=== PATIENT | male | born 1930 | race Caucasian/White ===

== ENCOUNTER 2018-08-03 09:25 | Emergency (ER) | payer MEDICARE, OTHER ==
[~2018-08-03] VITALS: Ht 160 cm; Wt 61.0 kg
--- NOTE | 2018-08-03 10:57 | NUR ---
ULTRASOUND AT BEDSIDE.
--- NOTE | 2018-08-03 11:13 | NUR ---
VASCULAR AT BEDSIDE
--- NOTE | 2018-08-03 11:20 | NUR ---
VASCLAR A BEDSIDE UNABLE TO DRAW BLOOD AND DO EKG UNTIL VASCULAR IS FINISHED.
--- NOTE | 2018-08-03 11:37 | NUR ---
LAB AT BEDSIDE DRAWING BLOOD.
[2018-08-03] MEDS ORDERED: furosemide 20MG tablet PO ONE (11:45)
[2018-08-03 12:01] LABS: BASOPHILS % (AUTO) 0.5 % (0-1); EOSINOPHILS # (AUTO) 0.1 X10'3 (0-0.9); HEMATOCRIT 37.5 % (42.0-52.0); HEMOGLOBIN 12.7 g/dl (14.0-17.9); LYMPHOCYTES # (AUTO) 1.1 X10'3 (1.1-4.8); LYMPHOCYTES % (AUTO) 16.4 % (21-51); MEAN CORPUSCULAR HEMOGLOBIN 32.5 PG (27.0-31.0); MEAN CORPUSCULAR HGB CONC 33.8 % (33.0-36.5); MEAN CORPUSCULAR VOLUME 95.9 FL (78-98); MEAN PLATELET VOLUME 10.6 FL (7.4-10.4); MONOCYTES # (AUTO) 0.3 X10'3 (0-0.9); NEUTROPHILS % (AUTO) 78.1 % (42-75); PLATELET COUNT 186 X10'3 (140-440); RED BLOOD COUNT 3.91 X10'6 (4.70-6.10); RED CELL DISTRIBUTION WIDTH 13.5 % (11.5-14.5); WHITE BLOOD COUNT 6.5 X10'3 (4.5-11.0)
[2018-08-03 12:10] LABS: D-DIMER 0.38 MG/L FEU (0-0.50)
[2018-08-03 12:52] LABS: ALANINE AMINOTRANSFERASE 26 U/L (12-78); ALBUMIN 3.3 G/DL (3.4-5.0); ALKALINE PHOSPHATASE 60 IU/L (46-116); ANION GAP 10 (8-16); ASPARTATE AMINO TRANSFERASE 16 U/L (10-37); BILIRUBIN,TOTAL 0.4 MG/DL (0.1-1.0); BLOOD UREA NITROGEN 19 MG/DL (7-18); BUN/CREATININE RATIO 24.1 (5.4-32.0); CALCIUM 8.9 MG/DL (8.5-10.1); CHLORIDE 102 MMOL/L (99-107); CREATININE 0.79 MG/DL (0.60-1.10); GLUCOSE 247 MG/DL (70-104); SODIUM 139 MMOL/L (135-145); TOTAL CARBON DIOXIDE 26.8 MMOL/L (24-32); TOTAL PROTEIN 6.5 G/DL (6.4-8.2); eGFR > 90 ML/MIN
[2018-08-03 13:05] VITALS: BP 143/79
== END 2018-08-03 13:08 | disposition home or self-care (01) ==
LOC: ER 09:26
DX: I50.9 Heart failure, unspecified (principal); R60.0 Localized edema; M79.89 Other specified soft tissue disorders; M19.90 Unspecified osteoarthritis, unspecified site; E11.9 Type 2 diabetes mellitus without complications; Z88.0 Allergy status to penicillin
CPT/HCPCS: 36415; 71045; 80053; 83880; 84484; 85025; 85379; 93005; 93970; 99284

== ENCOUNTER 2018-08-12 02:29 | Outpatient (CLI) | payer MEDICARE, OTHER | END 2018-08-12 23:59 | disposition home or self-care (01) | LOC: DIABETIC 02:29 | PROVIDERS: ATTEND Family Medicine | DX: E11.9 Type 2 diabetes mellitus without complications (principal); I10 Essential (primary) hypertension; Z79.84 Long term (current) use of oral hypoglycemic drugs | CPT/HCPCS: G0108 ==

== ENCOUNTER 2018-11-25 01:33 | Outpatient (CLI) | payer MEDICARE, OTHER | END 2018-11-25 23:59 | disposition home or self-care (01) | LOC: DIABETIC 01:33 | PROVIDERS: ATTEND Family Medicine | DX: E11.65 Type 2 diabetes mellitus with hyperglycemia (principal); I10 Essential (primary) hypertension; Z79.84 Long term (current) use of oral hypoglycemic drugs; Z79.899 Other long term (current) drug therapy | CPT/HCPCS: G0108 ==

== ENCOUNTER 2019-01-28 09:56 | Emergency (ER) | payer MEDICARE, OTHER ==
[~2019-01-28] VITALS: Ht 160 cm; Wt 72.0 kg
--- NOTE | 2019-01-28 10:15 | NUR ---
PT IS RESTING QUIETLY ON FAMILY HAVEN AT BEDSIDE
--- NOTE | 2019-01-28 11:36 | NUR ---
PT TO CT
[2019-01-28] MEDS ORDERED: ketorolac tromethamine 15mg/ml inj. IM ONE (12:20)
[2019-01-28] MEDS ORDERED: LIDOcaine 1% w/epiNEPHrine 1:200,000 30ml vial IM ONE (12:20)
--- NOTE | 2019-01-28 13:00 | NUR ---
pt is resting quietly, traffic technician to irrigate lac to posterior head
[2019-01-28 13:08] VITALS: BP 135/79
== END 2019-01-28 14:29 | disposition home or self-care (01) ==
LOC: ER 09:56
DX: S01.01XA Laceration without foreign body of scalp, initial encounter (principal); G89.29 Other chronic pain; M54.5 Low back pain; E11.9 Type 2 diabetes mellitus without complications; M19.90 Unspecified osteoarthritis, unspecified site; Z98.890 Other specified postprocedural states; Z88.0 Allergy status to penicillin; W10.8XXA Fall (on) (from) other stairs and steps, initial encounter; Y93.89 Activity, other specified; Y92.89 Other specified places as the place of occurrence of the external cause; Y99.9 Unspecified external cause status
CPT/HCPCS: 12002; 70450; 70490; 72125; 72128; 73030; 96372; 99284; J1885; 73700

== ENCOUNTER 2019-03-23 02:18 | Outpatient (CLI) | payer MEDICARE, OTHER | END 2019-03-23 23:59 | disposition home or self-care (01) | LOC: DIABETIC 02:18 | PROVIDERS: ATTEND Family Medicine | DX: E11.9 Type 2 diabetes mellitus without complications (principal); I10 Essential (primary) hypertension; Z79.84 Long term (current) use of oral hypoglycemic drugs; Z79.899 Other long term (current) drug therapy | CPT/HCPCS: G0108 ==

== ENCOUNTER 2019-04-27 13:43 | Observation (INO) | payer MEDICARE, OTHER ==
[~2019-04-27] VITALS: Ht 160 cm; Wt 71.0 kg
[2019-04-27 14:34] LABS: BASOPHILS % (AUTO) 0.5 % (0-1); EOSINOPHILS # (AUTO) 0.1 X10'3 (0-0.9); HEMOGLOBIN 11.8 g/dl (14.0-17.9); LYMPHOCYTES # (AUTO) 0.9 X10'3 (1.1-4.8); LYMPHOCYTES % (AUTO) 11.9 % (21-51); MEAN CORPUSCULAR HGB CONC 33.7 g/dL (33.0-36.5); MEAN PLATELET VOLUME 10.4 FL (7.4-10.4); MONOCYTES # (AUTO) 0.3 X10'3 (0-0.9); MONOCYTES % (AUTO) 4.6 % (2-12); NEUTROPHILS # (AUTO) 6.2 X10'3 (1.8-7.7); PLATELET COUNT 165 X10'3 (140-440); RED BLOOD COUNT 3.57 X10'6 (4.70-6.10); RED CELL DISTRIBUTION WIDTH 14.5 % (11.5-14.5); WHITE BLOOD COUNT 7.6 X10'3 (4.5-11.0)
[2019-04-27] MEDS ORDERED: METF-436 PO (14:51)
[2019-04-27 14:53] LABS: ALANINE AMINOTRANSFERASE 52 U/L (12-78); ALBUMIN 3.2 G/DL (3.4-5.0); ALKALINE PHOSPHATASE 65 IU/L (46-116); ANION GAP 9 (8-16); ASPARTATE AMINO TRANSFERASE 24 U/L (10-37); BILIRUBIN,TOTAL 0.3 MG/DL (0.1-1.0); BLOOD UREA NITROGEN 28 MG/DL (7-18); BUN/CREATININE RATIO 31.5 (5.4-32.0); CALCIUM 8.5 MG/DL (8.5-10.1); CHLORIDE 107 MMOL/L (99-107); CREATININE 0.89 MG/DL (0.60-1.10); GLUCOSE 347 MG/DL (70-104); POTASSIUM 4.3 MMOL/L (3.5-5.1); SODIUM 141 MMOL/L (135-145); TOTAL CARBON DIOXIDE 24.9 MMOL/L (24-32); TOTAL PROTEIN 6.3 G/DL (6.4-8.2); eGFR 81 ML/MIN
[2019-04-27 15:08] LABS: PARTIAL THROMBOPLASTIN TIME 27 SECONDS (22-32)
[2019-04-27] MEDS ORDERED: acetaminophen 325mg tablet PO PRN (15:30)
[2019-04-27] MEDS ORDERED: morphine 2 MG/ML inj. syringe IV PRN ×2 (15:30)
[2019-04-27] MEDS ORDERED: mag hydrox/Alum hydrox/simeth 30ml oral suspension PO PRN (15:30)
[2019-04-27] MEDS ORDERED: magnesium hydroxide 30ml (MOM) UD suspension PO PRN (15:30)
[2019-04-27] MEDS ORDERED: ondansetron/PF 4mg/2ml inj IV PRN (15:30)
[2019-04-27] MEDS ORDERED: nitroGLYCERIN 1gm ointment UD TP ONE (15:40)
--- NOTE | 2019-04-27 15:46 | NUR ---
PT STATES, THE PAIN IN EPIGASTRIC AREA IS COMING BACK. INFORMED DR. CONCEPCION PLEASE SEE NEW ORDERS.
[2019-04-27] MEDS ORDERED: DOXY100C2 PO (15:59)
[2019-04-27] MEDS ORDERED: SULFADIAZINE TOP (15:59)
[2019-04-27] MEDS ORDERED: MUPI22OI30 TP (15:59)
[2019-04-27] MEDS ORDERED: CETI5TAB8 PO (15:59)
[2019-04-27] MEDS ORDERED: ALFU10TA PO (15:59)
[2019-04-27] MEDS ORDERED: METF1000 PO (15:59)
[2019-04-27] MEDS ORDERED: CADE40GE2 TP (15:59)
[2019-04-27 16:00] VITALS: BP 126/69
[2019-04-27 18:00] VITALS: BP 136/73
[2019-04-27] MEDS ORDERED: cadexomer iodine 40gm GEL.GM TP PRN (19:55)
[2019-04-27] MEDS: heparin, porcine 5000 units/ml vial SQ SCH (20:53)
[2019-04-27] MEDS: metFORMIN 500mg tablet PO SCH (21:00)
[2019-04-27] MEDS: mupirocin 2% ointment 22GM TP SCH (21:17)
[2019-04-27 22:00] VITALS: BP 111/61
[2019-04-28 02:00] VITALS: BP 110/61
[2019-04-28 02:21] LABS: BASOPHILS % (AUTO) 0.5 % (0-1); EOSINOPHILS # (AUTO) 0.1 X10'3 (0-0.9); HEMATOCRIT 31.6 % (42.0-52.0); HEMOGLOBIN 10.9 g/dl (14.0-17.9); LYMPHOCYTES # (AUTO) 1.6 X10'3 (1.1-4.8); LYMPHOCYTES % (AUTO) 24.2 % (21-51); MEAN CORPUSCULAR HEMOGLOBIN 33.2 PG (27.0-31.0); MEAN CORPUSCULAR HGB CONC 34.5 g/dL (33.0-36.5); MEAN PLATELET VOLUME 10.3 FL (7.4-10.4); MONOCYTES # (AUTO) 0.4 X10'3 (0-0.9); MONOCYTES % (AUTO) 5.5 % (2-12); NEUTROPHILS # (AUTO) 4.6 X10'3 (1.8-7.7); NEUTROPHILS % (AUTO) 67.8 % (42-75); PLATELET COUNT 152 X10'3 (140-440); RED BLOOD COUNT 3.29 X10'6 (4.70-6.10); RED CELL DISTRIBUTION WIDTH 14.1 % (11.5-14.5); WHITE BLOOD COUNT 6.8 X10'3 (4.5-11.0)
[2019-04-28 02:29] LABS: ALBUMIN 2.8 G/DL (3.4-5.0); ANION GAP 7 (8-16); BLOOD UREA NITROGEN 24 MG/DL (7-18); BUN/CREATININE RATIO 32.4 (5.4-32.0); CALCIUM 9.3 MG/DL (8.5-10.1); CHLORIDE 107 MMOL/L (99-107); CREATININE 0.74 MG/DL (0.60-1.10); GLUCOSE 209 MG/DL (70-104); POTASSIUM 3.8 MMOL/L (3.5-5.1); SODIUM 139 MMOL/L (135-145); eGFR > 90 ML/MIN
--- NOTE | 2019-04-28 05:34 | NUR ---
Patient in room [id number] 3028. I have received report from maria del carmen HIGUERA and had the opportunity to ask questions and assume patient care.
--- NOTE | 2019-04-28 05:59 | NUR ---
Problems reprioritized. Patient report given, questions answered & plan of care reviewed with Radha HIGUERA.
--- NOTE | 2019-04-28 05:59 | NUR ---
[place] Medication Administration: For this medication-pass time frame, all medication were reviewed, dispensed, administered and documented per hospital policy by Ashlee HIGUERA. [place] documentation: I have reviewed interventions, assessments performed and documented by Ashlee HIGUERA.
[2019-04-28 07:00] VITALS: BP 127/65
[2019-04-28] MEDS ORDERED: cetirizine 10mg tablet PO SCH (08:00)
[2019-04-28] MEDS: mupirocin 2% ointment 22GM TP SCH (08:00)
[2019-04-28] MEDS ORDERED: silver sulfadiazine cream 50gm TP SCH (08:00)
[2019-04-28] MEDS ORDERED: alfuzosin 10MG TAB.SR.24H PO SCH (08:00)
[2019-04-28] MEDS: metFORMIN 500mg tablet PO SCH (08:30)
[2019-04-28] MEDS: heparin, porcine 5000 units/ml vial SQ SCH (08:30)
[2019-04-28] MEDS ORDERED: tamsulosin 0.4mg capsule PO SCH (08:47)
== END 2019-04-28 10:07 | disposition home or self-care (01) ==
LOC: ER 13:44 → ED HOLD 15:52 → PCU 3S 16:56
PROVIDERS: ADMIT Family Medicine; ATTEND Family Medicine
DX: R07.89 Other chest pain (principal); I20.0 Unstable angina; I35.0 Nonrheumatic aortic (valve) stenosis; E11.9 Type 2 diabetes mellitus without complications; R94.31 Abnormal electrocardiogram [ECG] [EKG]; I45.2 Bifascicular block; M19.90 Unspecified osteoarthritis, unspecified site; Z96.653 Presence of artificial knee joint, bilateral; Z79.84 Long term (current) use of oral hypoglycemic drugs; Z79.899 Other long term (current) drug therapy; Z88.0 Allergy status to penicillin
CPT/HCPCS: 36415; 71045; 80048; 80053; 82948; 83036; 84484; 85025; 85610; 85730; 87081; 93005; 93306; 96372; 99284; G0378; J1644

== ENCOUNTER 2019-05-31 13:22 | Day surgery (SDC) | payer MEDICARE, OTHER ==
[2019-05-26 11:19] LABS: BASOPHILS % (AUTO) 0.6 % (0-1); EOSINOPHILS # (AUTO) 0.1 X10'3 (0-0.9); EOSINOPHILS % (AUTO) 1.1 % (0-6); HEMATOCRIT 38.5 % (42.0-52.0); HEMOGLOBIN 13.2 g/dl (14.0-17.9); LYMPHOCYTES # (AUTO) 1.3 X10'3 (1.1-4.8); LYMPHOCYTES % (AUTO) 17.1 % (21-51); MEAN CORPUSCULAR HEMOGLOBIN 33.2 PG (27.0-31.0); MEAN CORPUSCULAR HGB CONC 34.2 g/dL (33.0-36.5); MEAN CORPUSCULAR VOLUME 97.1 FL (78-98); MEAN PLATELET VOLUME 10.1 FL (7.4-10.4); MONOCYTES # (AUTO) 0.4 X10'3 (0-0.9); MONOCYTES % (AUTO) 5.5 % (2-12); NEUTROPHILS # (AUTO) 5.8 X10'3 (1.8-7.7); NEUTROPHILS % (AUTO) 75.7 % (42-75); PLATELET COUNT 207 X10'3 (140-440); RED BLOOD COUNT 3.97 X10'6 (4.70-6.10); RED CELL DISTRIBUTION WIDTH 14.9 % (11.5-14.5); WHITE BLOOD COUNT 7.6 X10'3 (4.5-11.0)
[2019-05-26 11:30] LABS: PARTIAL THROMBOPLASTIN TIME 28 SECONDS (22-32)
[2019-05-26 11:32] LABS: ALANINE AMINOTRANSFERASE 99 U/L (12-78); ALBUMIN 3.4 G/DL (3.4-5.0); ALKALINE PHOSPHATASE 81 IU/L (46-116); ANION GAP 8 (8-16); ASPARTATE AMINO TRANSFERASE 44 U/L (10-37); BILIRUBIN,TOTAL 0.5 MG/DL (0.1-1.0); BLOOD UREA NITROGEN 20 MG/DL (7-18); BUN/CREATININE RATIO 24.4 (5.4-32.0); CALCIUM 8.7 MG/DL (8.5-10.1); CHLORIDE 106 MMOL/L (99-107); CREATININE 0.82 MG/DL (0.60-1.10); GLUCOSE 193 MG/DL (70-104); POTASSIUM 4.3 MMOL/L (3.5-5.1); SODIUM 141 MMOL/L (135-145); TOTAL CARBON DIOXIDE 27.5 MMOL/L (24-32); TOTAL PROTEIN 6.7 G/DL (6.4-8.2); eGFR 88 ML/MIN
[~2019-05-31] VITALS: Ht 160 cm; Wt 80.1 kg
[~2019-05-31 13:22] MED LIST: ALFU10TA PO; CADE40GE2 TP; CETI5TAB8 PO; DOXY100C2 PO; METF1000 PO; MUPI22OI30 TP; SULFADIAZINE TOP
[2019-05-31 13:51] VITALS: BP 108/61
[2019-05-31] MEDS ORDERED: LORazepam 0.5 MG tablet PO PRN (14:00)
[2019-05-31] MEDS ORDERED: normal saline 1,000 ML IV SCH (14:00)
[2019-05-31] MEDS ORDERED: diphenhydrAMINE 25mg capsule PO PRN (14:00)
[2019-05-31] MEDS ORDERED: FURO-150 PO (14:32)
[2019-05-31] MEDS ORDERED: iohexol 350MG/ML 100ml bottle IV ONE (16:24)
[2019-05-31] MEDS ORDERED: LIDOcaine 1% (10mg/ml)w/preservative injection 20ml MDV ONE (16:24)
[2019-05-31] MEDS ORDERED: fentaNYL/PF 50MCG/1 ML 2ML syringe ONE (16:24)
[2019-05-31] MEDS ORDERED: midazolam 2 mg/2 ml injection ONE (16:24)
[2019-05-31 17:35] VITALS: BP 123/64
[2019-05-31 17:53] VITALS: BP 122/60
[2019-05-31] MEDS ORDERED: OXAZEpam 15mg capsule PO PRN (18:00)
[2019-05-31] MEDS ORDERED: ondansetron/PF 4mg/2ml inj IV PRN (18:00)
[2019-05-31] MEDS ORDERED: HYDROcodone/acetaminophen 10/325mg tab PO PRN (18:00)
[2019-05-31] MEDS ORDERED: proCHLORperazine 10 MG/2 ml inj IV PRN (18:00)
[2019-05-31] MEDS ORDERED: HYDROcodone/acetaminophen 5mg/325mg tablet PO PRN (18:00)
[2019-05-31 18:32] VITALS: BP 113/58
[2019-05-31 18:54] VITALS: BP 108/48
[2019-05-31 19:25] VITALS: BP 113/64
== END 2019-05-31 19:45 | disposition home or self-care (01) ==
LOC: SSTAY O 13:22
PROVIDERS: ATTEND Internal Medicine Interventional Cardiology
DX: I35.0 Nonrheumatic aortic (valve) stenosis (principal); I25.10 Atherosclerotic heart disease of native coronary artery without angina pectoris; I11.0 Hypertensive heart disease with heart failure; I50.9 Heart failure, unspecified; G47.33 Obstructive sleep apnea (adult) (pediatric); E11.9 Type 2 diabetes mellitus without complications; I45.10 Unspecified right bundle-branch block; Z79.84 Long term (current) use of oral hypoglycemic drugs; Z88.0 Allergy status to penicillin; Z87.891 Personal history of nicotine dependence; Z79.899 Other long term (current) drug therapy
CPT/HCPCS: 36415; 80053; 82948; 85025; 85610; 85730; 93005; 93458; 99152; 99153; C1769; J1644; J2001; J2250; J3010; J7030; Q0163; Q9967; A4620; A6258